=== PATIENT | male | born 1995 | race Caucasian/White ===

== ENCOUNTER 2017-06-28 04:35 | Emergency (ER) | payer OTHER ==
[~2017-06-28] VITALS: Ht 170.2 cm; Wt 66.0 kg
[2017-06-28] MEDS ORDERED: PSEUDOGEST PO (04:50)
[2017-06-28] MEDS ORDERED: MUCI30TA5 PO (04:50)
[2017-06-28] MEDS ORDERED: ADDE30CA3 PO (04:50)
[2017-06-28] MEDS ORDERED: ALBE200T7 PO (06:33)
[2017-06-28 06:44] VITALS: BP 140/82
== END 2017-06-28 06:58 | disposition home or self-care (01) ==
LOC: M ED 04:35
DX: B80 Enterobiasis (principal); F90.9 Attention-deficit hyperactivity disorder, unspecified type; Z79.899 Other long term (current) drug therapy; Z91.030 Bee allergy status; Z88.0 Allergy status to penicillin

== ENCOUNTER → 2017-07-01 | Outpatient (REF) | payer OTHER ==
[~2017-07-01] MED LIST: ADDE30CA3 PO; ALBE200T7 PO; DEXTROAMP-AMPHETAMIN; MUCI30TA5 PO; PSEUDOGEST PO
== END ==
LOC: M LAB REF 17:16
PROVIDERS: ATTEND Physician Assistant
DX: R19.7 Diarrhea, unspecified (principal); B80 Enterobiasis

== ENCOUNTER 2017-07-02 11:59 | Emergency (ER) | payer OTHER ==
[~2017-07-02] VITALS: Ht 170.2 cm; Wt 63.6 kg
[~2017-07-02 11:59] MED LIST changes: -DEXTROAMP-AMPHETAMIN
[2017-07-02] MEDS ORDERED: DEXTROAMP-AMPHETAMIN (12:10)
[2017-07-02 13:50] LABS: BASO % 0.8 % (0.0-1.0); EOS # 0.1 10^3/uL (0.0-0.50); EOS % 1.4 % (0.0-3.0); IMMATURE GRANULOCYTE % 0.2 % (0-0); LYMPH # 2.2 10^3/uL (1.5-6.5); LYMPH % 42.8 % (24.0-44.0); MEAN CORPUSCULAR HEMOGLOBIN 29.9 pg (27.0-33.0); MEAN CORPUSCULAR HGB CONC 35.2 g/dl (32.0-36.5); MEAN CORPUSCULAR VOLUME 84.7 fl (80.0-96.0); MONO # 0.3 10^3/uL (0.0-0.8); MONO % 5.4 % (0.0-5.0); NEUTROPHILS # 2.6 10^3/uL (1.8-7.7); NEUTROPHILS % 49.4 % (36.0-66.0); PLATELET COUNT, AUTOMATED 261 10^3/uL (150-450); RED CELL DISTRIBUTION WIDTH 12.1 % (11.5-14.5); WHITE BLOOD COUNT 5.2 10^3/uL (4.0-10.0)
[2017-07-02 13:51] LABS: ADD MANUAL DIFFER NO; DIFF SLIDE NUMBER 262
[2017-07-02 14:21] LABS: ANION GAP 5 MEQ/L (8-16); BLOOD UREA NITROGEN 8 MG/DL (7-18); CALCIUM LEVEL 9.5 MG/DL (8.5-10.1); CARBON DIOXIDE LEVEL 33 MEQ/L (21-32); CHLORIDE LEVEL 102 MEQ/L (98-107); CREATININE FOR GFR 1.04 MG/DL (0.70-1.30); GLOMERULAR FILTRATION RATE > 60.0 (>60); GLUCOSE, FASTING 95 MG/DL (70-105); POTASSIUM SERUM 3.5 MEQ/L (3.5-5.1); SODIUM LEVEL 140 MEQ/L (136-145)
[2017-07-02 14:22] LABS: ALBUMIN 4.7 GM/DL (3.2-5.2); ALBUMIN/GLOBULIN RATIO 1.38 (1.00-1.93); ALKALINE PHOSPHATASE 62 U/L (45-117); ALT/SGPT 28 U/L (12-78); AST/SGOT 14 U/L (15-37); BILIRUBIN,TOTAL 0.6 MG/DL (0.2-1.0); TOTAL PROTEIN 8.1 GM/DL (6.4-8.2)
[2017-07-02 14:47] LABS: METHADONE URINE NEGATIVE (NEGATIVE)
[2017-07-02 15:26] LABS: BILIRUBIN,DIRECT 0.2 MG/DL (0.0-0.2)
[2017-07-02 16:00] LABS: YEAST LIKE CELL URINE AUTO SMALL
[2017-07-02 16:20] VITALS: BP 138/87
== END 2017-07-02 16:21 | disposition home or self-care (01) ==
LOC: M ED 11:59
DX: A04.72 Enterocolitis due to Clostridium difficile, not specified as recurrent (principal); F41.9 Anxiety disorder, unspecified; F90.9 Attention-deficit hyperactivity disorder, unspecified type; F17.210 Nicotine dependence, cigarettes, uncomplicated; Z79.899 Other long term (current) drug therapy; Z91.030 Bee allergy status; Z88.0 Allergy status to penicillin

== ENCOUNTER 2019-03-26 09:58 | Emergency (ER) | payer OTHER ==
[~2019-03-26] VITALS: Ht 170.2 cm; Wt 68.2 kg
[~2019-03-26 09:58] MED LIST changes: +DEXTROAMP-AMPHETAMIN
[2019-03-26] MEDS ORDERED: NS 2,000 ML in IV 1 EA IV ONE (10:15)
[2019-03-26 11:41] LABS: BLOOD UREA NITROGEN 15 MG/DL (7-18); CALCIUM LEVEL 8.8 MG/DL (8.5-10.1); CARBON DIOXIDE LEVEL 30 MEQ/L (21-32); CHLORIDE LEVEL 103 MEQ/L (98-107); CPK CREATINE PHOSPHOKINASE 1158 U/L (39-308); CREATININE FOR GFR 1.24 MG/DL (0.70-1.30); GLOMERULAR FILTRATION RATE > 60.0 (>60); GLUCOSE, FASTING 163 MG/DL (70-100); POTASSIUM SERUM 3.7 MEQ/L (3.5-5.1); SODIUM LEVEL 138 MEQ/L (136-145)
[2019-03-26 13:16] VITALS: BP 127/69
== END 2019-03-26 12:55 | disposition home or self-care (01) ==
LOC: M ED 09:58
DX: M79.10 Myalgia, unspecified site (principal); R79.89 Other specified abnormal findings of blood chemistry; F90.9 Attention-deficit hyperactivity disorder, unspecified type; Z79.899 Other long term (current) drug therapy; Z88.0 Allergy status to penicillin; Z91.030 Bee allergy status